=== PATIENT | female | born 1935 | race Caucasian/White ===

== ENCOUNTER 2022-09-08 15:41 | Inpatient (IN) | payer MEDICARE, SELFPAY ==
[2022-09-08] VITALS (8 sets, daily range): BP systolic 108–128; BP diastolic 64–90; PULSE 97–145; RESP 16–28; TEMP 36.9–37.1; O2SAT 94–98; BMI 29.8
--- NOTE | 2022-09-08 15:50 | ECG_ITS ---
[facility] Test Date: 2022-09-08 Pat Name: Avis Villela Department: Room: Gender: Female Crown Presser: : 1935 Requested By: Neri Garcia Order Number: [id number] Sanna MD: Viviana Minor M.D. Measurements Intervals [place] Rate: 146 P: 0 AK: 0 QRS: -7 QRSD: 108 T: 184 QT: 264 QTc: 412 Interpretive Statements ATRIAL FIBRILLATION WITH RAPID VENTRICULAR RESPONSE ST DEVIATION AND MODERATE T-WAVE ABNORMALITY, CONSIDER LATERAL ISCHEMIA [-0.1+ mV T-WAVE IN I/aVL/V5/V6] No previous ECG available for comparison Electronically Signed On 09-08-2022 16:42:26 HOT WOUND SPRING PRODUCTION SUPERVISOR by Viviana Minor M.D. [id number] f
--- NOTE | 2022-09-08 15:50 | XRR_ITS ---
PROCEDURE INFORMATION: Exam: XR Chest Exam date and time: 09/08/2022 3:58 PM Age: 86 years old Clinical indication: Shortness of breath; Additional info: Dyspnea/cough, HX of covid, SOB, 2 months TECHNIQUE: Imaging protocol: Radiologic exam of the chest. Views: 1 view. COMPARISON: No relevant prior studies available. FINDINGS: Lungs: Parenchymal densities seen in the right lower lobe. Possible pneumonia. Right upper lobe and left lung are clear Pleural spaces: Unremarkable. No pleural effusion. No pneumothorax. Heart/Mediastinum: Unremarkable. No cardiomegaly. Bones/joints: Unremarkable. XR/XR chest 1V portable [id number] IMPRESSION: 1. Parenchymal densities right lower lobe consistent with pneumonia 2. Otherwise negative chest examination
[2022-09-08] MEDS: dilTIAZem 5 mg/mL SDV 5 mL 20 MG IVP (16:02)
[2022-09-08] MEDS: dilTIAZem 100 MG in sodium chloride 0.9% (add-van) 100 ML IV (16:03)
--- NOTE | 2022-09-08 16:15 | ED_ITS ---
HPI - SOB/Dyspnea General: Chief Complaint: Shortness of Breath/Dyspnea Stated Complaint: RESPIRATORY DISTRESS Time Seen by Provider: 09/08/22 15:46 Source: patient Mode of arrival: ambulatory History of Present Illness: HPI Narrative: 86-year-old female presents emergency room with complaints of shortness of breath and cough progressive over the last 3 days. Cough has been productive of green sputum but denies any fever. Denies any hemoptysis. Patient does have a history of A-fib with RVR and is currently in a rapid rate around 140s. Patient additionally is noted to be on an anticoagulant. MD elicited complaint: shortness of breath Pertinent past history: other (atrial fibrilation) Onset (ago): day(s) Timing: constant Severity: moderate Exacerbating factors: lying flat and exertion Relieving factors: upright position Associated symptoms: Reports palpitations; Deny abdominal pain, chest congestion, chest pain, cough, diaphoresis, dizziness, extremity pain, fever(s), hemoptysis, lightheadedness, myalgias, nausea, orthopnea, paresthesias, polydipsia, polyuria, rash, sense of impending doom, syncope or vomiting Review of Systems Const: Denies: fever(s), chills, fatigue, malaise or diaphoresis ENMT: Denies: throat pain, ear or mastoid pain, nasal discharge or nasal congestion Card: Reports: palpitations; Denies: chest pain, lightheadedness, syncope or orthopnea Resp: Denies: hemoptysis or chest congestion GI: Denies: abdominal pain, nausea or vomiting : Denies: flank pain, difficulty voiding, dysuria, urinary frequency or urinary urgency Musc: Denies: extremity pain Skin/Breast: Denies: rash or pruritus Neuro: Denies: dizziness Endo: Denies: polyuria or polydipsia PFSH ED PFSH: Medical History (Updated 09/13/22 @ 13:34 by Neri Aponte DO) Asthma Atrial fibrillation Congestive heart failure (CHF) History of aortic stenosis Hyperlipidemia Hypertension Surgical History (Updated 09/08/22 @ 18:09 by Fabricio Swain MD) History of hysterectomy Family History (Updated 09/08/22 @ 18:09 by Fabricio Swain MD) Mother Uterine cancer Father Fall Traumatic fall Social History (Updated 09/08/22 @ 18:09 by Fabricio Swain MD) Smoking and tobacco status: never smoked Alcohol intake: never Substance/Drug Use: never Physical Exam Const: GENERAL APPEARANCE: cooperative and comfortable ORIENTATION/C ONSCIOUSNESS: Yes awake, Yes oriented to person, Yes oriented to place and Yes oriented to time HENMT: COMMON NORMALS: normocephalic, atraumatic and hearing grossly normal bilaterally HEAD & SCALP: normocephalic and atraumatic Resp: COMMON NORMALS: normal respiratory effort, No retractions, No use of accessory muscles and clear to auscultation bilaterally AUSCULTATION: clear to auscultation bilaterally Cardio: COMMON NORMALS: No murmurs present (Cardio) RATE: tachycardic HEART SOUNDS: Murmur heart sound present systolic GI: COMMON NORMALS: Soft to palpation and No hepatosplenomegaly present AUSCULTATION: Yes normoactive bowel sounds PALPATION: Yes Soft to palpation, No Tenderness to palpation present (GI), No Guarding due to palpation present (GI) and Yes No hepatosplenomegaly present Extremity: COMMON NORMALS: normal to inspection, capillary refill normal, no clubbing, cyanosis or edema, no calf tenderness and no pedal edema Neuro: SENSORIUM/ORIENTATION: Yes oriented to person, Yes oriented to place and Yes oriented to time Skin: COMMON NORMALS: no rashes or lesions noted GENERAL SKIN EXAM: no rashes or lesions noted Course Vital Signs: Vital signs: Vital Signs Temperature 97.9 F 09/13/22 12:00 Pulse Rate 82 09/13/22 08:00 Respiratory Rate 18 09/13/22 12:00 Blood Pressure 121/70 09/13/22 12:00 Pulse Oximetry 94 09/13/22 12:00 Oxygen Delivery Me thod 09/13/22 12:00 Oxygen Flow Rate 2 09/13/22 08:00 MDM - SOB/Dyspnea Medical Decision Making Labs imaging and EKGs reviewed. Patient in A-fib with RVR. Patient also has pneumonia complicated by congestive heart failure discussed the hospitalist orders written admit. Medical Records I reviewed the patient's medical records. Lab Data I reviewed the patient's lab results. 09/13/22 03:38 09/13/22 03:38 Labs/Radiology: Radiology Impressions Chest X-Ray 09/08/22 15:50 IMPRESSION: 1. Parenchymal densities right lower lobe consistent with pneumonia 2. Otherwise negative chest examination Venous Duplex 09/09/22 08:08 IMPRESSION: No evidence of deep vein thrombosis. Laboratory Results WBC 7.3 10^3/uL (4.0-10.0) 09/08/22 16:17 RBC 4.76 10^6/uL (4.1-5.3) 09/08/22 16:17 Hgb 12.3 g/dL (11.5-15.3) 09/08/22 16:17 Hct 39.9 % (37.0-47.0) 09/08/22 16:17 MCV 83.8 fl (81-99) 09/08/22 16:17 MCH 25.8 pg (28.0-34.0) L 09/08/22 16:17 MCHC 30.8 g/dL (30.0-36.0) 09/08/22 16:17 RDW 18.6 % (12.1-15.1) H 09/08/22 16:17 Plt Count 234 10^3/cmm (130-400) 09/08/22 16:17 MPV 11.1 fL (7.4-10.4) H 09/08/22 16:17 Neut % (Auto) 69.1 % 09/08/22 16:17 Lymph % (Auto) 13.8 % 09/08/22 16:17 [place] % (Auto) 14.4 % 09/08/22 16:17 Eos % (Auto) 1.8 % 09/08/22 16:17 Baso % (Auto) 0.6 % 09/08/22 16:17 Neut # (Auto) 5.03 10^3/uL (1.8-7.7) 09/08/22 16:17 Lymph # (Auto) 1.0 10^3/uL (0.8-4.8) 09/08/22 16:17 [place] # (Auto) 1.1 10^3/uL (0.2-0.9) H 09/08/22 16:17 Eos # (Auto) 0.1 10^3/uL (0.0-0.8) 09/08/22 16:17 Baso # (Auto) 0.0 10^3/uL (0.0-0.1) 09/08/22 16:17 Nucleated RBC % (auto) 0 % 09/08/22 16:17 Nucleated RBCs # 0.0 /100WBC 09/08/22 16:17 Sodium 137 mmol/L (136-145) 09/08/22 16:17 Potassium 4.4 mmol/L (3.5-5.1) 09/08/22 16:17 Chloride 99 mmol/L (98-107) 09/08/22 16:17 Carbon Dioxide 23 mmol/L (22-29) 09/08/22 16:17 Anion Gap 19.4 (5-19) H 09/08/22 16:17 BUN 8 mg/dL (8-23) 09/08/22 16:17 Creatinine 0.7 mg/dL (0.5-0.9) 09/08/22 16:17 GFR Calculation Not Reportable 09/08/22 16:17 Glucose 112 mg/dL (65-115) 09/08/22 16:17 Calculated Osmolality 283 mOsm/kg (285-295) L 09/08/22 16:17 Lactic Acid 2.1 mmol/L (0.5-2.2) 09/08/22 16:17 Calcium 9.5 mg/dL (8.5-10.5) 09/08/22 16:17 Troponin T Baseline 13 ng/L (0-10) H 09/08/22 16:13 Troponin T 120 Minute 13.70 ng/L (0-10) H 09/08/22 18:32 Delta Troponin T 0.70 ABS# (0-10) 09/08/22 18:32 C-Reactive Protein 52.6 mg/L (0.0-4.9) H 09/08/22 16:17 NT-Pro-B Natriuret Pep 7450 pg/mL (0-450) H 09/08/22 16:17 Triglycerides 52 mg/dL (0-150) 09/08/22 18:32 Cholesterol 132 mg/dL (0-200) 09/08/22 18:32 LDL Cholesterol, Calc 76 mg/dL (50-129) 09/08/22 18:32 HDL Cholesterol 46 mg/dL (60-100) L 09/08/22 18:32 LDL/HDL Ratio 1.65 RATIO (0.00-3.22) 09/08/22 18:32 Cholesterol/HDL Ratio 2.87 mg/dL (0.0-4.40) 09/08/22 18:32 Procalcitonin 0.07 ng/mL (0-0.5) 09/08/22 16:17 TSH 1.99 uIU/mL (0.27-4.20) 09/08/22 18:32 Coronavirus 229E (PCR) Detected (NOT DETECT) A 09/08/22 17:38 SARS-CoV-2 (PCR) Detected (NOT DETECT) A 09/08/22 17:38 Discharge Plan Discharge Patient Disposition: Admitted As Inpatient Admit Provider: Fabricio Swain Clinical Impression: Pneumonia, Atrial fibrillation with RVR, CHF exacerbation, Aortic stenosis, Mitral valve regurgitation Condition: Stable Discharge Diet: Cardiac Discharge Activity: Resume usual activity Coding Level of Care Code ED Curator Herbarium for Rajiv Avila
[2022-09-08] MEDS: FUROsemide 10 mg/mL SDV 4mL 40 MG IVP (16:23)
--- NOTE | 2022-09-08 17:04 | PC.PHAR ---
PT UNABLE TO VERIFY HER MEDS - PT STS HER DAUGHTER RAINER TAKES CARE OF THEM - NO PHONE NUMBER AVAILABLE TO CALL DAUGHTER- VERIFIED USING EXTERNAL MED LIST LAST FILLED AND DAYS SUPPLY
--- NOTE | 2022-09-08 17:15 | ECG_ITS ---
[facility] Test Date: 2022-09-08 Pat Name: Avis Villela Department: Room: Gender: Female Regulatory Compliance Manager: : 1935 Requested By: Fabricio Swain Order Number: [id number] Sanna MD: Viviana Minor M.D. Measurements Intervals [place] Rate: 146 P: 0 CO: 0 QRS: -7 QRSD: 108 T: 184 QT: 264 QTc: 412 Interpretive Statements ATRIAL FIBRILLATION WITH RAPID VENTRICULAR RESPONSE ST DEVIATION AND MODERATE T-WAVE ABNORMALITY, CONSIDER LATERAL ISCHEMIA [-0.1+ mV T-WAVE IN I/aVL/V5/V6] No previous ECG available for comparison Electronically Signed On 09-08-2022 23:15:17 SCIENTIFIC WRITER by Viviana Minor M.D. [email or web address]/[id number] f
[2022-09-08 17:23] LABS: Basophils % 0.6 %; Eosinophils # 0.1 10^3/uL (0.0-0.8); Eosinophils % 1.8 %; Hematocrit 39.9 % (37.0-47.0); Hemoglobin 12.3 g/dL (11.5-15.3); Lymphocytes % 13.8 %; Mean Corpuscular HGB Conc 30.8 g/dL (30.0-36.0); Mean Corpuscular Hemoglobin 25.8 pg (28.0-34.0); Mean Corpuscular Volume 83.8 fl (81-99); Mean Platelet Volume 11.1 fL (7.4-10.4); Monocytes # 1.1 10^3/uL (0.2-0.9); Monocytes % 14.4 %; Neutrophils # 5.03 10^3/uL (1.8-7.7); Neutrophils % 69.1 %; Nucleated Red Blood Cells % 0 %; Platelet Count 234 10^3/cmm (130-400); Red Blood Count 4.76 10^6/uL (4.1-5.3); Red Cell Distribution Width 18.6 % (12.1-15.1); White Blood Count 7.3 10^3/uL (4.0-10.0)
[2022-09-08 17:32] LABS: Lactic Sepsis W/Reflex 2.1 mmol/L (0.5-2.2)
[2022-09-08] MEDS: levofloxacin-dextrose 5 % 750 MG/150 ML PREMIX 100 MG IV (17:36)
[2022-09-08 17:42] LABS: NT Pro B Type Natriuretic Pept 7450 pg/mL (0-450); Procalcitonin 0.07 ng/mL (0-0.5)
[2022-09-08 17:53] LABS: Anion Gap 19.4 (5-19); Blood Urea Nitrogen 8 mg/dL (8-23); C Reactive Protein 52.6 mg/L (0.0-4.9); Calcium 9.5 mg/dL (8.5-10.5); Carbon Dioxide 23 mmol/L (22-29); Chloride 99 mmol/L (98-107); Glucose 112 mg/dL (65-115); Osmolality Calculated 283 mOsm/kg (285-295); Potassium 4.4 mmol/L (3.5-5.1); Sodium 137 mmol/L (136-145)
--- NOTE | 2022-09-08 18:04 | PM.HP ---
Providers/Chief Complaint Primary Care Provider: Josh Metz Chief Complaint: RESPIRATORY DISTRESS History of Present Illness Avis Villela is a 86 year old female with a past medical history of aortic valve stenosis, mitral valve regurg, atrial fibrillation on Eliquis, hypertension, hyperlipidemia, history of asthma, sees a associate [employer] since [place], this is her third hospitalization in the last 2 months, she was at [facility] the last 2 tabs most recent was August 16, currently lives at home, with her daughter, ambulates with a walker, requires assistance with activities of daily living, who presents to [facility] due to increased shortness of breath with exertion progressing to rest, with developing bilateral lower extremity edema, productive cough. Patient is alert to person, to place, not to time, she knows who the president is, she frequently looks to her daughter for answers but daughter denies a history of dementia. She denies any falls, no fevers, chills, no chest pain, no history of CAD no history of stenting, no history of angiogram, she recently just saw her associate [employer] and he told her that she had what sounds like severe aortic stenosis but not severe enough to do surgery Review of Systems Const: Denies: fever(s) or chills Eyes: Denies: change in vision ENMT: Denies: throat pain or nasal discharge Card: Reports: palpitations and edema; Denies: chest pain Resp: Reports: dyspnea and productive cough GI: Denies: abdominal pain, nausea or vomiting : Denies: flank pain, difficulty voiding, dysuria or urinary frequency Musc: Denies: back pain Skin/Breast: Denies: rash Neuro: Denies: headache(s), numbness in extremities or weakness in extremities Psych: Denies: anxiety Endo: Reports: polyuria Medications/Allergies Home Medications Medication Instructions Recorded Confirmed Last Taken Type albuterol sulfate 2.5 mg/3 mL 2.5 mg inhalation Q4H PRN 09/08/22 09/08/22 Unknown History (0.083 %) solution for nebulization Shortness Of Breath albuterol sulfate 90 mcg/actuation 2 puff inhalation Q4H PRN 09/08/22 09/08/22 Unknown History aerosol inhaler Shortness Of Breath apixaban 5 mg tablet (Eliquis) 5 mg PO BID 09/08/22 09/08/22 Unknown History bumetanide 0.5 mg tablet 0.5 mg PO DAILY 09/08/22 09/08/22 Unknown History diltiazem HCl 120 mg 120 mg PO DAILY 09/08/22 09/08/22 Unknown History capsule,extended release 24 hr fluticasone 250 mcg-salmeterol 50 1 inh inhalation BID 09/08/22 09/08/22 Unknown History mcg/dose blistr powdr for inhalation (Advair Diskus) fluticasone propionate 50 2 spray intranasal DAILY 09/08/22 09/08/22 Unknown History mcg/actuation nasal spray,suspension furosemide 40 mg tablet 40 mg PO DAILY 09/08/22 09/08/22 Unknown History hydrochlorothiazide 12.5 mg tablet 6.25 mg PO DAILY 09/08/22 09/08/22 Unknown History metoprolol tartrate 50 mg tablet 50 mg PO BID 09/08/22 09/08/22 Unknown History pantoprazole 40 mg tablet,delayed 40 mg PO DAILY 09/08/22 09/08/22 Unknown History release potassium chloride 20 mEq 20 meq PO BID 09/08/22 09/08/22 Unknown History tablet,extended release(part/cryst) PFSH Acute PFSH: Medical History (Updated 09/08/22 @ 18:12 by Fabricio Swain MD) Asthma Atrial fibrillation Congestive heart failure (CHF) History of aortic stenosis Hyperlipidemia Hypertension Surgical History (Updated 09/08/22 @ 18:09 by Fabricio Swain MD) History of hysterectomy Family History (Updated 09/08/22 @ 18:09 by Fabricio Swain MD) Mother Uterine cancer Father Fall Traumatic fall Social History (Updated 09/08/22 @ 18:09 by Fabricio Swain MD) Smoking and tobacco status: never smoked Alcohol intake: never Substance/Drug Use: never Vitals/I&O/Wt Last Vital Signs Temp 98.8 F 09/08/22 15:45 Pulse 109 H 09/08/22 17:43 Resp 16 09/08/22 17:43 BP 108/70 09/08/22 17:43 Pulse Ox 96 09/08/22 17:43 O2 Del Method 09/08/22 17:43 O2 Flow Rate 2 09/08/22 17:43 Weight last 48 hrs Weight 83.915 kg Physical Exam Const: COMMON NORMALS: no acute distress and patient oriented x3 HENMT: COMMON NORMALS: normocephalic HEAD & SCALP: normocephalic Eye: COMMON NORMALS: Equal, round and reactive pupils present and EOMs intact bilaterally Neck/C-Spine: COMMON NORMALS: no JVD Lymph: LYMPHATIC: no lymphadenopathy noted Chest: COMMONS NORMALS: normal inspection of the chest Resp: COMMON NORMALS: normal respiratory effort, No retractions and No use of accessory muscles AUSCULTATION: crackles and wheezes Cardio: COMMON NORMALS: S1 normal heart sound present and S2 normal heart sound present RATE: tachycardic RHYTHM: abnormal rhythm irregularly irregular HEART SOUNDS: S1 normal heart sound present and S2 normal heart sound present GI: COMMON NORMALS: Normal to inspection, nondistended, normoactive bowel sounds present and Soft to palpation PALPATION: Yes Soft to palpation and Yes No hepatosplenomegaly present : COMMON NORMALS: Yes no CVA tenderness Extremity: COMMON NORMALS: no clubbing, cyanosis or edema and no calf tenderness NARRATIVE EXTREMITY EXAM: 2+ pitting edema bilateral extremity Neuro: COMMON NORMALS: patient oriented x3, CN's II-XII intact bilaterally, moves all extremities and no focal motor deficits Psych: COMMON NORMALS: mental status grossly normal Data 09/08/22 16:17 09/08/22 16:17 Micro: Microbiology 09/08/22 17:07 Blood Culture - Preliminary Blood SPECIMEN COLLECTED 09/08/22 17:13 Blood Culture - Preliminary Blood SPECIMEN COLLECTED A&P Assessment and plan (1) CHF exacerbation: (2) Atrial fibrillation with RVR: (3) Pneumonia: (4) Physical deconditioning: (5) Protein calorie malnutrition: (6) Goals of care, counseling/discussion: (7) Chronic anticoagulation: (8) Congestive heart failure (CHF): (9) Hypertension: (10) Hyperlipidemia: (11) Asthma: (12) Aortic stenosis: (13) Mitral valve regurgitation: (14) Atrial fibrillation: (15) Acute respiratory failure with hypoxia: (16) Acute encephalopathy: Plan Acute encephalopathy -Likely secondary to underlying dementia -However pneumonia could be playing a role -Neurochecks, aspiration precautions Acute hypoxic respiratory failure -Secondary to pneumonia, A-fib with RVR, fluid overload from acute CHF exacerbation A-fib with RVR -Continue Cardizem drip -Continue Metroprolol 50 twice daily -Continue home Cardizem -Eliquis 5 mg twice daily -Based upon what patient is telling, likely her severe aortic stenosis and her mitral regurg is playing a role due to her recurrent hospitalizations for A-fib, likely her valve will need to be intervened on at some point Acute systolic and diastolic CHF exacerbation -Fluid restrictions 1500 cc -Bumex 1 mg every 12 hours -Place Sanchez catheter -Monitor potassium, magnesium, creatinine Pneumonia -Received Levaquin in the emergency room -COVID pending -Continue Rocephin and azithromycin -Blood cultures -Sputum cultures -Pro-Steve, CRP Asthma, -Continue albuterol, budesonide Hypertension, continue metoprolol Hyperlipidemia, will consider statin based on lipid, Physical deconditioning, PT OT Protein calorie malnutrition, with muscle wasting, has temporal muscle wasting, peripheral muscle wasting Full code Eliquis for DVT prophylaxis Attestations Medical Necessity Statement*: Patient requires hospitalization, inpatient, greater than 2 midnights, for pneumonia, acute hypoxic respiratory failure, CHF exacerbation, systolic diastolic, A-fib with RVR, encephalopathy Coding Level of Care Code Acute Code for Chg Fwd Diagnoses CHF exacerbation I50.9 Atrial fibrillation with RVR I48.91 Pneumonia J18.9 Physical deconditioning R53.81 Protein calorie malnutrition E46 Goals of care, counseling/discussion Z71.89 Chronic anticoagulation Z79.01 Congestive heart failure (CHF) I50.9 Hypertension I10 Hyperlipidemia E78.5 Asthma J45.909 Aortic stenosis I35.0 Mitral valve regurgitation I34.0 Atrial fibrillation I48.91 Acute respiratory failure with hypoxia J96.01 Acute encephalopathy G93.40
[2022-09-08 18:18] LABS: Troponin(5th) Baseline 13 ng/L (0-10)
[2022-09-08 18:44] LABS: Reflex Lactate Order REFLEX LACTIC ORDERD
--- NOTE | 2022-09-08 19:15 | ECG_ITS ---
[facility] Test Date: 2022-09-08 Pat Name: Avis Villeal Department: Room: Gender: Female Ground Defence Officer: : 1935 Requested By: Fabricio Swain Order Number: [id number] Sanna MD: Viviana Minor M.D. Measurements Intervals [place] Rate: 101 P: 0 AK: 0 QRS: 26 QRSD: 102 T: 135 QT: 332 QTc: 431 Interpretive Statements ATRIAL FIBRILLATION WITH RAPID VENTRICULAR RESPONSE ST DEVIATION AND MODERATE T-WAVE ABNORMALITY, CONSIDER LATERAL ISCHEMIA [-0.1+ mV T-WAVE IN I/aVL/V5/V6] Compared to ECG 09/08/2022 15:54:15 No significant changes Electronically Signed On 09-08-2022 23:21:03 DENTAL PATIENT COORDINATOR by Viviana Minor M.D. [id number]
[2022-09-08 19:54] LABS: Adenovirus Not Detected (NOT DETECT); Chlamydia Pneumoniae Not Detected (NOT DETECT); Coronavirus 229E,HKU1,NL63,OC4 Detected (NOT DETECT); Human Metapneumovirus Not Detected (NOT DETECT); Human Rhinovirus/Enterovirus Not Detected (NOT DETECT); Influenza A Not Detected (NOT DETECT); Influenza A H1 Not Detected (NOT DETECT); Influenza A H1-2009 Not Detected (NOT DETECT); Influenza A H3 Not Detected (NOT DETECT); Influenza B Not Detected (NOT DETECT); Mycoplasma Pneumoniae Not Detected (NOT DETECT); Parainfluenza Virus Type 1 Not Detected (NOT DETECT); Parainfluenza Virus Type 2 Not Detected (NOT DETECT); Parainfluenza Virus Type 3 Not Detected (NOT DETECT); Parainfluenza Virus Type 4 Not Detected (NOT DETECT); Respiratory Syncytial Virus A Not Detected (NOT DETECT); Respiratory Syncytial Virus B Not Detected (NOT DETECT); SARS-COV-2 Detected (NOT DETECT)
[2022-09-08] MEDS: metoprolol tartrate 50 mg Tablet PO (19:54)
[2022-09-08] MEDS: apixaban 5 mg Tablet PO (19:54)
[2022-09-08 19:55] LABS: Lactic Acid level (Lactate) 2.8 mmol/L (0.5-2.2)
[2022-09-08] MEDS: bumetanide 0.25 mg/mL SDV 4 mL 1 MG IVP (19:55)
[2022-09-08] MEDS: potassium chloride ER 20 mEq Tablet PO (19:55)
--- NOTE | 2022-09-08 19:58 | PC.NURSE ---
received pt from ER with cardizem gtt infusing at 15 mg/hr, titrated in MAR to reflect current rate
[2022-09-08 21:00] LABS: Chol HDL Ratio 2.87 mg/dL (0.0-4.40); Cholesterol 132 mg/dL (0-200); HDL Cholesterol 46 mg/dL (60-100); LDL Cholesterol Calculated 76 mg/dL (50-129); LDL HDL Ratio 1.65 RATIO (0.00-3.22); Thyroid Stimulating Hormone 1.99 uIU/mL (0.27-4.20); Triglycerides 52 mg/dL (0-150)
[2022-09-08] MEDS: budesonide 0.5 mg/2 mL Neb INHALATION (22:07)
[2022-09-08 22:20] LABS: Add Urine Microscopic? NO; Charge for UA Resulting for Rev
[2022-09-08 22:40] LABS: Bilirubin Urine Neg (Negative); Blood Urine Neg (Negative); Glucose Urine UA Norm (Normal); Ketones Urine Negative (Negative); Leukocyte Esterase Urine Negative (Negative); Nitrate Urine Negative (Negative); Protein Urine Neg (Negative); Specific Gravity, Urine 1.005 (1.005-1.030); Urine Appearance Clear (CLEAR); Urine Color Yellow (Yellow); Urobilinogen Urine Neg (Negative); pH Urine 5 (5-7)
--- NOTE | 2022-09-08 23:51 | ECG_ITS ---
[facility] Test Date: 2022-09-08 Pat Name: Avis Villela Department: Room: 107 Gender: Female Pantomimist: : 1935 Requested By: Fabricio Swain Order Number: [id number] Sanna MD: Reinier Grier M.D. Measurements Intervals [place] Rate: 91 P: 0 WI: 0 QRS: -14 QRSD: 106 T: 187 QT: 407 QTc: 503 Interpretive Statements ATRIAL FIBRILLATION ST DEVIATION AND MODERATE T-WAVE ABNORMALITY, CONSIDER ANTEROLATERAL ISCHEMIA [-0.1+ mV T-WAVE IN V3-V6] Compared to ECG 09/08/2022 18:25:21 No significant changes Electronically Signed On 09-09-2022 19:35:32 MANAGER SALES by Reinier Grier M.D. [email or web address]/[id number]
[2022-09-09] VITALS (60 sets, daily range): BP systolic 101–109; BP diastolic 57–75; PULSE 96–133; RESP 17–36; TEMP 36.3–37.8; O2SAT 86–99
[2022-09-09] MEDS: dilTIAZem 100 MG in sodium chloride 0.9% (add-van) 100 ML IV (01:35)
[2022-09-09] MEDS: benzonatate 100 mg Capsule 200 MG PO ×3 (02:55→20:13)
[2022-09-09 03:27] LABS: Basophils % 0.4 %; Eosinophils # 0.1 10^3/uL (0.0-0.8); Hematocrit 37.9 % (37.0-47.0); Hemoglobin 11.5 g/dL (11.5-15.3); Lymphocytes # 0.9 10^3/uL (0.8-4.8); Lymphocytes % 11.8 %; Mean Corpuscular HGB Conc 30.3 g/dL (30.0-36.0); Mean Corpuscular Volume 82.4 fl (81-99); Mean Platelet Volume 10.2 fL (7.4-10.4); Monocytes # 1.1 10^3/uL (0.2-0.9); Neutrophils # 5.68 10^3/uL (1.8-7.7); Neutrophils % 72.4 %; Nucleated Red Blood Cells % 0 %; Platelet Count 215 10^3/cmm (130-400); Red Cell Distribution Width 18.3 % (12.1-15.1); White Blood Count 7.9 10^3/uL (4.0-10.0)
[2022-09-09 04:00] LABS: Anion Gap 13.7 (5-19); Blood Urea Nitrogen 7 mg/dL (8-23); Calcium 9.3 mg/dL (8.5-10.5); Carbon Dioxide 26 mmol/L (22-29); Chloride 95 mmol/L (98-107); Glucose 122 mg/dL (65-115); Magnesium 1.8 mg/dL (1.7-2.3); NT Pro B Type Natriuretic Pept 6044 pg/mL (0-450); Osmolality Calculated 271 mOsm/kg (285-295); Potassium 3.7 mmol/L (3.5-5.1); Sodium 131 mmol/L (136-145)
[2022-09-09] MEDS: acetaminophen 325 mg Tablet 650 MG PO (04:36)
--- NOTE | 2022-09-09 06:00 | USCV_ITS ---
Avis Villela Age: 86 Gender: F : 1935 Exam Date: 09/09/2022 13:08 Ordering Phys: Fabricio Swain MD Technologist: MITRA [place] [facility] [place] BP: / HR: 103 Rhythm: Sinus Technical Quality: MEASUREMENTS (Male / Female) Normal Values 2D ECHO LVOT Diameter 1.8 cm LV Ejection Fraction MOD 2C 79.3 % LV Ejection Fraction 2C AL 78.8 % LA Diameter 4.7 cm IVC Diameter 2.9 cm M-MODE Aortic Annulus Diameter 2.2 cm LA Ao Ratio MM 2.2 MV E Point Septal Separation 1.2 cm DOPPLER AV Peak Velocity 360.0 cm/s LVOT Peak Velocity 69.0 cm/s AV Area Cont Eq vti 0.6 cm squared AV Area Cont Eq pk 0.5 cm squared MV Area PHT 5.1 cm squared MV E' Velocity 132.0 cm/s TR Peak Velocity 324.3 cm/s TR Peak Gradient 42.1 mmHg Right Atrial Pressure 15.0 mmHg Pulmonary Artery Systolic Pressu 57.1 mmHg PV Peak Velocity 79.0 cm/s FINDINGS Left Ventricle Normal left ventricular size and systolic function, EF 74 %. No regional wall motion abnormalities. Right Ventricle Normal right ventricular size and systolic function. Right Atrium Mildly increased right atrial size. Left Atrium Moderately increased left atrial size. Mitral Valve Thickened mitral valve. Moderate mitral annular calcification. Moderate mitral valve regurgitation. Aortic Valve Severe low gradient aortic valve stenosis, mean gradient 28.7 mmHg, NANO 0.56 cm squared. Peak velocity of 3.6 m/s with a peak gradient of 52 and a mean gradient of 29 mm of Hg Tricuspid Valve Mdqpeurj-bg-vexzvu tricuspid valve regurgitation. Estimated pulmonary artery peak systolic pressure of 57 mmHg-moderate pulmonary hypertension Pulmonic Valve No gross abnormalities noted Pericardium No pericardial effusion. Aorta Normal ascending aorta dimension. IVC Dilated inferior vena cava measuring 2.9 cm CONCLUSIONS Normal left ventricular size and systolic function, EF 74 %. No regional wall motion abnormalities. Severe low gradient aortic valve stenosis, mean gradient 28.7 mmHg, NANO 0.56 cm squared. Peak velocity of 3.6 m/s with a peak gradient of 52 and a mean gradient of 29 mm of Hg. Moderate biatrial enlargement Thickened mitral valve. Moderate mitral annular calcification. Moderate mitral valve regurgitation. Bdphnxna-py-tlddji tricuspid valve regurgitation. Estimated pulmonary artery peak systolic pressure of 57 mmHg-moderate pulmonary hypertension. There is no pericardial effusion. There are no intracardiac masses. No similar previous studies are available for comparison Dr Reinier Grier MD [facility] (Electronically Signed) Final Date: 09 September 2022 14:55 S
[2022-09-09] MEDS: bumetanide 0.25 mg/mL SDV 4 mL 1 MG IVP ×2 (06:13→17:33)
--- NOTE | 2022-09-09 08:08 | USR_ITS ---
PROCEDURE INFORMATION: Exam: US Duplex Lower Extremity Veins, Bilateral Exam date and time: 09/09/2022 1:40 PM Age: 86 years old Clinical indication: Edema, localized; Lower extremity, bilateral; Additional info: Dvt TECHNIQUE: Imaging protocol: Real-time duplex ultrasound of the bilateral extremities with 2-D linton scale, color Doppler flow and spectral waveform analysis including responses to compression and other maneuvers (when performed) with image documentation. Complete exam focused on the lower extremity veins. COMPARISON: No relevant prior studies available. FINDINGS: Right deep veins: Unremarkable. The common femoral, femoral, proximal profunda femoral and popliteal veins are patent without thrombus. Normal Doppler waveforms. Normal compressibility and/or augmentation response. Right superficial veins: Saphenofemoral junction is patent without thrombus. Left deep veins: Unremarkable. The common femoral, femoral, proximal profunda femoral and popliteal veins are patent without thrombus. Normal Doppler waveforms. Normal compressibility and/or augmentation response. Left superficial veins: Saphenofemoral junction is patent without thrombus. Soft tissues: Unremarkable. US/CV venous duplex [facility] [id number] IMPRESSION: No evidence of deep vein thrombosis.
[2022-09-09] MEDS: azithromycin 500 MG in sodium chloride 0.9% 250 ML 250 MG IV (09:19)
[2022-09-09] MEDS: dexamethasone 10 mg/mL INJ 6 MG IVP (09:20)
[2022-09-09] MEDS: potassium chloride ER 20 mEq Tablet PO ×2 (09:21→17:36)
[2022-09-09] MEDS: pantoprazole DR 40 mg Tablet PO (09:21)
[2022-09-09] MEDS: dilTIAZem ER (24HR) 120 mg Capsule PO (09:21)
[2022-09-09] MEDS: metOLazone 5 MG Tablet PO (09:21)
[2022-09-09] MEDS: apixaban 5 mg Tablet PO ×2 (09:21→17:36)
[2022-09-09] MEDS: metoprolol tartrate 50 mg Tablet PO ×2 (09:21→17:36)
[2022-09-09] MEDS: cefTRIAXone 1,000 MG in sodium chloride 0.9% (plus) 50 ML 100 MG IV (09:22)
[2022-09-09] MEDS: albuterol 2.5 mg/3 mL Neb INHALATION (09:30)
[2022-09-09] MEDS: budesonide 0.5 mg/2 mL Neb INHALATION ×2 (09:30→21:17)
[2022-09-09] MEDS: remdesivir 200 MG in sodium chloride 0.9% (100 ml) 60 ML 100 MG IV (10:04)
--- NOTE | 2022-09-09 14:34 | P.PN_ITS ---
Subjective Subjective: Patient was seen this morning, she continues to complain of weakness, fatigue, her COVID-19 was positive overnight, she had a low-grade fever overnight, having wheezing Vitals/I&O/Wt Last Vital Signs Temp 98.0 F 09/09/22 11:32 Pulse 106 H 09/09/22 14:05 Resp 19 H 09/09/22 14:05 BP 103/69 09/09/22 14:05 Pulse Ox 86 L 09/09/22 14:05 O2 Del Method 09/09/22 11:32 O2 Flow Rate 1 09/09/22 11:32 09/08/22 09/09/22 09/09/22 22:59 06:59 14:59 Intake Total 207.208 / 207.208 517.667 / 724.875 520 / 520 Output Total 1000 / 1000 1000 / 2000 Balance -792.792 / -792.792 -482.333 / -1275.125 520 / 520 Weight last 48 hrs Weight 83.915 kg Physical Exam Const: COMMON NORMALS: no acute distress and patient oriented x3 Resp: COMMON NORMALS: normal respiratory effort, No retractions and No use of accessory muscles Cardio: COMMON NORMALS: regular rate, regular rhythm, S1 normal heart sound present and S2 normal heart sound present RATE: regular rate RHYTHM: regular rhythm HEART SOUNDS: S1 normal heart sound present and S2 normal heart sound present GI: COMMON NORMALS: Normal to inspection, nondistended, normoactive bowel sounds present and non-tender Extremity: NARRATIVE EXTREMITY EXAM: Has 1+ edema Neuro: COMMON NORMALS: patient oriented x3 Psych: COMMON NORMALS: mental status grossly normal Urinary Catheter Management: Sanchez: Cath Placed During This Visit: yes Reason for Continuing Indwelling Catheter: Accurate Measurement of Urinary Output in Critically Ill Patients Urinary Catheter Date of Insertion: 09/08/22 Urinary Catheter Time of Insertion: 19:30 Data 09/09/22 03:11 09/09/22 03:11 Micro: Microbiology 09/08/22 17:07 Blood Culture - Preliminary Blood SPECIMEN COLLECTED 09/08/22 17:13 Blood Culture - Preliminary Blood SPECIMEN COLLECTED A&P Assessment and plan (1) CHF exacerbation: (2) Atrial fibrillation with RVR: (3) Pneumonia: (4) Physical deconditioning: (5) Protein calorie malnutrition: (6) Goals of care, counseling/discussion: (7) Chronic anticoagulation: (8) Congestive heart failure (CHF): (9) Hypertension: (10) Hyperlipidemia: (11) Asthma: (12) Aortic stenosis: (13) Mitral valve regurgitation: (14) Atrial fibrillation: (15) Acute respiratory failure with hypoxia: (16) Acute encephalopathy: (17) Pneumonia due to COVID-19 virus: Plan Acute encephalopathy -Resolved -Likely secondary to underlying dementia -However pneumonia could be playing a role -Neurochecks, aspiration precautions Acute hypoxic respiratory failure -Secondary to pneumonia, A-fib with RVR, fluid overload from acute CHF exac erbation A-fib with RVR -Wean off Cardizem drip -Continue Metroprolol 50 twice daily -Continue home Cardizem -Eliquis 5 mg twice daily -Based upon what patient is telling, likely her severe aortic stenosis and her mitral regurg is playing a role due to her recurrent hospitalizations for A-fib, likely her valve will need to be intervened on at some point Acute systolic and diastolic CHF exacerbation -Fluid restrictions 1500 cc -Bumex 1 mg every 12 hours -Place Sanchez catheter -Monitor potassium, magnesium, creatinine Pneumonia -Received Levaquin in the emergency room -Continue Rocephin and azithromycin -Blood cultures -Sputum cultures COVID-19 pneumonia, switch to Decadron, and add remdesivir Asthma, -Continue albuterol, budesonide Hypertension, continue metoprolol Hyperlipidemia, will consider statin based on lipid, Physical deconditioning, PT OT Protein calorie malnutrition, with muscle wasting, has temporal muscle wasting, peripheral muscle wasting Full code Eliquis for DVT prophylaxis Attestations Medical Necessity Statement*: Patient requires position due to COVID-19 pneumonia, requiring Decadron remdesivir A-fib, requiring rate control, CHF exacerbation requiring diuresis, pneumonia requiring broad-spectrum empiric therapy Diagnoses CHF exacerbation I50.9 Atrial fibrillation with RVR I48.91 Pneumonia J18.9 Physical deconditioning R53.81 Protein calorie malnutrition E46 Goals of care, counseling/discussion Z71.89 Chronic anticoagulation Z79.01 Congestive heart failure (CHF) I50.9 Hypertension I10 Hyperlipidemia E78.5 Asthma J45.909 Aortic stenosis I35.0 Mitral valve regurgitation I34.0 Atrial fibrillation I48.91 Acute respiratory failure with hypoxia J96.01 Acute encephalopathy G93.40 Pneumonia due to COVID-19 virus U07.1; J12.82
[2022-09-09] MEDS: metoprolol tartrate 1 mg/1 mL SDV 5 mL 5 MG IVP (20:14)
[2022-09-10] VITALS (13 sets, daily range): BP systolic 101–132; BP diastolic 55–100; PULSE 96–113; RESP 15–106; TEMP 36.3–37.2; O2SAT 91–95
[2022-09-10 02:56] LABS: Basophils % 0.1 %; Hematocrit 38.1 % (37.0-47.0); Hemoglobin 11.9 g/dL (11.5-15.3); Lymphocytes # 0.8 10^3/uL (0.8-4.8); Lymphocytes % 11.5 %; Mean Corpuscular HGB Conc 31.2 g/dL (30.0-36.0); Mean Corpuscular Hemoglobin 25.6 pg (28.0-34.0); Mean Corpuscular Volume 82.1 fl (81-99); Mean Platelet Volume 10.8 fL (7.4-10.4); Monocytes # 0.6 10^3/uL (0.2-0.9); Monocytes % 8.7 %; Neutrophils # 5.59 10^3/uL (1.8-7.7); Neutrophils % 79.3 %; Nucleated Red Blood Cells % 0 %; Platelet Count 225 10^3/cmm (130-400); Red Blood Count 4.64 10^6/uL (4.1-5.3); Red Cell Distribution Width 18.1 % (12.1-15.1); White Blood Count 7.1 10^3/uL (4.0-10.0)
[2022-09-10 03:31] LABS: Alanine Aminotransferase 10 U/L (0-33); Albumin Level 3.2 g/dL (3.5-5.2); Alkaline Phosphatase 112 U/L (35-105); Anion Gap 14.4 (5-19); Aspartate Amino Transferase 14 U/L (0-32); Blood Urea Nitrogen 13 mg/dL (8-23); C Reactive Protein 73.4 mg/L (0.0-4.9); Calcium 9.4 mg/dL (8.5-10.5); Carbon Dioxide 27 mmol/L (22-29); Chloride 95 mmol/L (98-107); Globulin 2.9 g/dL (1.3-4.6); Glucose 174 mg/dL (65-115); NT Pro B Type Natriuretic Pept 7979 pg/mL (0-450); Osmolality Calculated 280 mOsm/kg (285-295); Phosphorus 3.6 mg/dL (2.5-4.5); Potassium 3.4 mmol/L (3.5-5.1); Sodium 133 mmol/L (136-145); Total Bilirubin 0.5 mg/dL (0.15-1.2); Total Protein 6.1 g/dL (6.6-8.7)
[2022-09-10] MEDS: guaiFENesin-dextromethorphan UDC 10 mL 5 ML PO (04:36)
[2022-09-10] MEDS: albuterol 2.5 mg/3 mL Neb INHALATION ×3 (04:49→19:27)
[2022-09-10] MEDS: bumetanide 0.25 mg/mL SDV 4 mL 1 MG IVP ×2 (06:14→18:15)
[2022-09-10] MEDS: remdesivir 100 MG in sodium chloride 0.9% (100 ml) 80 ML IV (06:16)
[2022-09-10] MEDS: azithromycin 500 MG in sodium chloride 0.9% 250 ML 250 MG IV (08:55)
[2022-09-10] MEDS: cefTRIAXone 1,000 MG in sodium chloride 0.9% (plus) 50 ML 100 MG IV (08:56)
[2022-09-10] MEDS: fluticasone nasal spray 16gm Btl 2 SPRAY INTRANASAL (08:56)
[2022-09-10] MEDS: pantoprazole DR 40 mg Tablet PO (08:57)
[2022-09-10] MEDS: potassium chloride ER 20 mEq Tablet PO ×2 (08:57→18:15)
[2022-09-10] MEDS: benzonatate 100 mg Capsule 200 MG PO (08:57)
[2022-09-10] MEDS: apixaban 5 mg Tablet PO ×2 (08:57→18:15)
[2022-09-10] MEDS: dexamethasone 10 mg/mL INJ 6 MG IVP (08:58)
[2022-09-10] MEDS: dilTIAZem ER (24HR) 120 mg Capsule PO (09:03)
[2022-09-10] MEDS: metoprolol tartrate 50 mg Tablet 75 MG PO ×2 (09:03→18:14)
[2022-09-10] MEDS: budesonide 0.5 mg/2 mL Neb INHALATION ×2 (09:55→19:27)
[2022-09-10] MEDS: ondansetron 2 mg/ML SDV 2 mL 4 MG IVP (10:29)
--- NOTE | 2022-09-10 14:16 | PM.PN ---
Subjective Subjective: Patient was seen this morning, she feels a bit better, I went over her echocardiogram results which show severe aortic stenosis, she tells me that her pharmacy services representative told her that she has severe external cyst that she will eventually need surgery, she is not sure about the timeframe, but her heart rates are better controlled, Vitals/I&O/Wt Last Vital Signs Temp 98.0 F 09/10/22 12:00 Pulse 108 H 09/10/22 12:00 Resp 15 09/10/22 12:00 BP 125/55 09/10/22 12:00 Pulse Ox 92 09/10/22 12:00 O2 Del Method 09/10/22 12:00 O2 Flow Rate 1 09/10/22 09:42 09/09/22 09/10/22 09/10/22 22:59 06:59 14:59 Intake Total 320 / 960 700 / 1660 236 / 236 Output Total 1600 / 1600 850 / 2450 Balance -1280 / -640 -150 / -790 236 / 236 Weight last 48 hrs Weight 83.915 kg Physical Exam Const: COMMON NORMALS: no acute distress and patient oriented x3 Resp: COMMON NORMALS: normal respiratory effort, No retractions, No use of accessory muscles and clear to auscultation bilaterally AUSCULTATION: clear to auscultation bilaterally Cardio: COMMON NORMALS: regular rate, regular rhythm, S1 normal heart sound present and S2 normal heart sound present RATE: regular rate RHYTHM: regular rhythm HEART SOUNDS: S1 normal heart sound present and S2 normal heart sound present GI: COMMON NORMALS: Normal to inspection, nondistended, normoactive bowel sounds present and non-tender Extremity: COMMON NORMALS: no pedal edema Neuro: COMMON NORMALS: patient oriented x3 Psych: COMMON NORMALS: mental status grossly normal Urinary Catheter Management: Sanchez: Cath Placed During This Visit: yes Reason for Continuing Indwelling Catheter: Accurate Measurement of Urinary Output in Critically Ill Patients Urinary Catheter Date of Insertion: 09/08/22 Urinary Catheter Time of Insertion: 19:30 Data 09/10/22 02:28 09/10/22 02:28 Micro: Microbiology 09/08/22 21:45 Gram Stain - Final Sputum - Expectorated Sputum Sputum Culture - Preliminary 09/08/22 17:07 Blood Culture - Preliminary Blood NEGATIVE TO DATE 09/08/22 17:13 Blood Culture - Preliminary Blood NEGATIVE TO DATE A&P Assessment and plan (1) CHF exacerbation: (2) Atrial fibrillation with RVR: (3) Pneumonia: (4) Physical deconditioning: (5) Protein calorie malnutrition: (6) Goals of care, counseling/discussion: (7) Chronic anticoagulation: (8) Congestive heart failure (CHF): (9) Hypertension: (10) Hyperlipidemia: (11) Asthma: (12) Aortic stenosis: (13) Mitral valve regurgitation: (14) Atrial fibrillation: (15) Acute respiratory failure with hypoxia: (16) Acute encephalopathy: (17) Pneumonia due to COVID-19 virus: Plan Acute encephalopathy -Resolved -Likely secondary to underlying dementia -However pneumonia could be playing a role -Neurochecks, aspiration precautions Acute hypoxic respiratory failure -Secondary to pneumonia, A-fib with RVR, fluid overload from acute CHF exacerbation A-fib with RVR -Continue increase metoprolol to 75 twice daily -Continue home Cardizem -Eliquis 5 mg twice daily -Based upon what patient is telling, likely her severe aortic stenosis and her mitral regurg is playing a role due to her recurrent hospitalizations for A-fib, likely her valve will need to be intervened on at some point Acute systolic and diastolic CHF exacerbation -Fluid restrictions 1500 cc -Bumex 1 mg every 12 hours cardiac echo Normal left ventricular size and systolic function, EF 74 %. No ?regional wall motion abnormalities. ?Severe low gradient aortic valve stenosis, mean gradient 28.7 ?mmHg, NANO 0.56 cm squared.? Peak velocity of 3.6 m/s with a peak ?gradient of 52 and a mean gradient of 29 mm of Hg. ?Moderate biatrial enlargement ?Thickened mitral valve. Moderate mitral annular calcification.? ?Moderate mitral valve regurgitation. ?Vgdwgyih-[id number]-disbtt tricuspid valve regurgitation.? Estimated ?pulmonary artery peak systolic pressure of 57 mmHg-moderate ?pulmonary hypertension. ?There is no pericardial effusion. ?There are no intracardiac masses. ?No similar previous studies are available for comparison -Place Sanchez catheter -Monitor potassium, magnesium, creatinine Severe aortic stenosis, will discuss with patient's pharmacy services representative tomorrow Pneumonia -Received Levaquin in the emergency room -Continue Rocephin and azithromycin -Blood cultures -Sputum cultures COVID-19 pneumonia, switch to Decadron, and add remdesivir Asthma, -Continue albuterol, budesonide Hypertension, continue metoprolol Hyperlipidemia, will consider statin based on lipid, Physical deconditioning, PT OT Protein calorie malnutrition, with muscle wasting, has temporal muscle wasting, peripheral muscle wasting Full code Eliquis for DVT prophylaxis Attestations Medical Necessity Statement*: Patient requires a position for A-fib RVR, pneumonia, severe arctic stenosis CHF exacerbation, pneumonia Diagnoses CHF exacerbation I50.9 Atrial fibrillation with RVR I48.91 Pneumonia J18.9 Physical deconditioning R53.81 Protein calorie malnutrition E46 Goals of care, counseling/discussion Z71.89 Chronic anticoagulation Z79.01 Congestive heart failure (CHF) I50.9 Hypertension I10 Hyperlipidemia E78.5 Asthma J45.909 Aortic stenosis I35.0 Mitral valve regurgitation I34.0 Atrial fibrillation I48.91 Acute respiratory failure with hypoxia J96.01 Acute encephalopathy G93.40 Pneumonia due to COVID-19 virus U07.1; J12.82
[2022-09-10] MEDS: ALPRAZolam 0.5 mg Tablet 0.25 MG PO (20:23)
[2022-09-11] VITALS (13 sets, daily range): BP systolic 111–123; BP diastolic 62–76; PULSE 75–96; RESP 16–23; TEMP 36.3–36.9; O2SAT 93–100
[2022-09-11] MEDS: bumetanide 0.25 mg/mL SDV 4 mL 1 MG IVP (06:02)
[2022-09-11] MEDS: remdesivir 100 MG in sodium chloride 0.9% (100 ml) 80 ML IV (06:02)
[2022-09-11 06:08] LABS: Basophils % 0.1 %; Hemoglobin 11.7 g/dL (11.5-15.3); Lymphocytes % 10.1 %; Mean Corpuscular HGB Conc 30.8 g/dL (30.0-36.0); Mean Corpuscular Hemoglobin 25.1 pg (28.0-34.0); Mean Corpuscular Volume 81.4 fl (81-99); Mean Platelet Volume 11.4 fL (7.4-10.4); Monocytes # 0.7 10^3/uL (0.2-0.9); Monocytes % 7.7 %; Neutrophils # 7.65 10^3/uL (1.8-7.7); Neutrophils % 81.8 %; Nucleated Red Blood Cells % 0 %; Platelet Count 249 10^3/cmm (130-400); Red Blood Count 4.67 10^6/uL (4.1-5.3); Red Cell Distribution Width 17.5 % (12.1-15.1); White Blood Count 9.4 10^3/uL (4.0-10.0)
[2022-09-11 06:44] LABS: Alanine Aminotransferase 9 U/L (0-33); Albumin Level 3.1 g/dL (3.5-5.2); Alkaline Phosphatase 100 U/L (35-105); Anion Gap 15.5 (5-19); Aspartate Amino Transferase 14 U/L (0-32); Blood Urea Nitrogen 21 mg/dL (8-23); C Reactive Protein 37.6 mg/L (0.0-4.9); Calcium 9.7 mg/dL (8.5-10.5); Carbon Dioxide 30 mmol/L (22-29); Chloride 97 mmol/L (98-107); Globulin 2.3 g/dL (1.3-4.6); Glucose 141 mg/dL (65-115); Magnesium 1.7 mg/dL (1.7-2.3); Osmolality Calculated 293 mOsm/kg (285-295); Potassium 3.5 mmol/L (3.5-5.1); Sodium 139 mmol/L (136-145); Total Bilirubin 0.4 mg/dL (0.15-1.2); Total Protein 5.4 g/dL (6.6-8.7)
[2022-09-11 06:45] LABS: NT Pro B Type Natriuretic Pept 10252 pg/mL (0-450)
[2022-09-11] MEDS: metoprolol tartrate 50 mg Tablet 75 MG PO ×2 (08:50→18:11)
[2022-09-11] MEDS: pantoprazole DR 40 mg Tablet PO (08:50)
[2022-09-11] MEDS: apixaban 5 mg Tablet PO ×2 (08:50→18:11)
[2022-09-11] MEDS: dilTIAZem ER (24HR) 120 mg Capsule PO (08:50)
[2022-09-11] MEDS: potassium chloride ER 20 mEq Tablet PO (08:50)
[2022-09-11] MEDS: azithromycin 500 MG in sodium chloride 0.9% 250 ML 250 MG IV (08:51)
[2022-09-11] MEDS: dexamethasone 10 mg/mL INJ 6 MG IVP (08:51)
[2022-09-11] MEDS: fluticasone nasal spray 16gm Btl 2 SPRAY INTRANASAL (08:51)
[2022-09-11] MEDS: cefTRIAXone 1,000 MG in sodium chloride 0.9% (plus) 50 ML 100 MG IV (08:51)
[2022-09-11] MEDS: albuterol 2.5 mg/3 mL Neb INHALATION ×2 (10:32→20:59)
--- NOTE | 2022-09-11 10:46 | PC.SOCIAL ---
Pg 2 IMM Explained to pt Pg 2 IMM. No questions voiced. Provided pt a copy. Initialed, dated, & timed a copy & placed in chart.
--- NOTE | 2022-09-11 15:45 | P.PN_ITS ---
Subjective Subjective: Patient was seen this morning, she is feeling better, she continues to feel weak, she is actually on room air to 1 L, her edema has improved her shortness of breath has improved, I spoke to patient's daughter, she has COVID and is sick at home, I was able to get patient's freelance web designer phone number so I can discuss with his echo cardiogram findings Spoke to Dr. Abdirahman Mujica, [facility] about patient's echocardiogram results, she has severe stenosis, and hospitalization for A-fib with RVR CHF, he says that he will try to see her sooner for consideration of aortic valve replacement Vitals/I&O/Wt Last Vital Signs Temp 98.0 F 09/11/22 12:00 Pulse 95 09/11/22 12:00 Resp 23 H 09/11/22 12:00 BP 115/67 09/11/22 12:00 Pulse Ox 93 09/11/22 12:00 O2 Del Method 09/11/22 12:00 O2 Flow Rate 4 09/11/22 10:32 09/11/22 09/11/22 09/11/22 06:59 14:59 22:59 Intake Total 600 / 600 Output Total 1550 / 3700 1999 Balance -1550 / -2664 -1400 / -1400 Physical Exam Const: COMMON NORMALS: no acute distress ORIENTATION/CONSCIOUSNESS: Yes awake, Yes oriented to person and Yes oriented to place Resp: COMMON NORMALS: normal respiratory effort, No retractions and No use of accessory muscles AUSCULTATION: crackles Cardio: COMMON NORMALS: regular rate, regular rhythm, S1 normal heart sound present and S2 normal heart sound present RATE: regular rate RHYTHM: regular rhythm HEART SOUNDS: S1 normal heart sound present and S2 normal heart sound present GI: COMMON NORMALS: Normal to inspection, nondistended, normoactive bowel sounds present and non-tender Extremity: COMMON NORMALS: no pedal edema Neuro: SENSORIUM/ORIENTATION: Yes oriented to person and Yes oriented to place Psych: COMMON NORMALS: mental status grossly normal Urinary Catheter Management: Sanchez: Cath Placed During This Visit: yes Reason for Continuing Indwelling Catheter: Accurate Measurement of Urinary Output in Critically Ill Patients Urinary Catheter Date of Insertion: 09/08/22 Urinary Catheter Time of Insertion: 19:30 Data 09/11/22 05:39 02/20/23 05:39 Micro: Microbiology 09/08/22 21:45 Gram Stain - Final Sputum - Expectorated Sputum Sputum Culture - Final A&P Assessment and plan (1) CHF exacerbation: (2) Atrial fibrillation with RVR: (3) Pneumonia: (4) Physical deconditioning: (5) Protein calorie malnutrition: (6) Goals of care, counseling/discussion: (7) Chronic anticoagulation: (8) Congestive heart failure (CHF): (9) Hypertension: (10) Hyperlipidemia: (11) Asthma: (12) Aortic stenosis: (13) Mitral valve regurgitation: (14) Atrial fibrillation: (15) Acute respiratory failure with hypoxia: (16) Acute encephalopathy: (17) Pneumonia due to COVID-19 virus: Plan Acute encephalopathy -Resolved -Likely secondary to underlying dementia -However pneumonia could be playing a role -Neurochecks, aspiration precautions Acute hypoxic respiratory failure -Secondary to pneumonia, A-fib with RVR, fluid overload from acute CHF exacerbation A-fib with RVR -Continue increase metoprolol to 75 twice daily -Continue home Cardizem -Eliquis 5 mg twice daily -Based upon what patient is telling, likely her severe aortic stenosis and her mitral regurg is playing a role due to her recurrent hospitalizations for A-fib, spoke to patient's freelance web designer, he will have her follow-up sooner for consideration of aortic valve replacement Acute systolic and diastolic CHF exacerbation -Fluid restrictions 1500 cc -Become a euvolemic, switch to Bumex 1 mg every 24 hours cardiac echo Normal left ventricular size and systolic function, EF 74 %. No ?regional wall motion abnormalities. ?Severe low gradient aortic valve stenosis, mean gradient 28.7 ?mmHg, NANO 0.56 cm squared.? Peak velocity of 3.6 m/s with a peak ?gradient of 52 and a mean gradient of 29 mm of Hg. ?Moderate biatrial enlargement ?Thickened mitral valve. Moderate mitral annular calcification.? ?Moderate mitral valve regurgitation. ?Kxkdqshz-[id number] tricuspid valve regurgitation.? Estimated ?pulmonary artery peak systolic pressure of 57 mmHg-moderate ?pulmonary hypertension. ?There is no pericardial effusion. ?There are no intracardiac masses. ?No similar previous studies are available for comparison -Place Sanchez catheter -Monitor potassium, magnesium, creatinine Severe aortic stenosis, will discuss with patient's freelance web designer tomorrow Pneumonia -Received Levaquin in the emergency room -De-escalate to Augmentin -Blood cultures -Sputum cultures COVID-19 pneumonia, switch to Decadron, and add remdesivir Asthma, -Continue albuterol, budesonide Hypertension, continue metoprolol Hyperlipidemia, will consider statin based on lipid, Physical deconditioning, PT OT Protein calorie malnutrition, with muscle wasting, has temporal muscle wasting, peripheral muscle wasting Full code Eliquis for DVT prophylaxis Attestations Medical Necessity Statement*: Patient requires hospital care for fluid overload, pneumonia, severe arctic stenosis Diagnoses CHF exacerbation I50.9 Atrial fibrillation with RVR I48.91 Pneumonia J18.9 Physical deconditioning R53.81 Protein calorie malnutrition E46 Goals of care, counseling/discussion Z71.89 Chronic anticoagulation Z79.01 Congestive heart failure (CHF) I50.9 Hypertension I10 Hyperlipidemia E78.5 Asthma J45.909 Aortic stenosis I35.0 Mitral valve regurgitation I34.0 Atrial fibrillation I48.91 Acute respiratory failure with hypoxia J96.01 Acute encephalopathy G93.40 Pneumonia due to COVID-19 virus U07.1; J12.82
[2022-09-11] MEDS: amoxicillin-clav 875-125 mg Tablet 1 TAB PO (18:11)
[2022-09-11] MEDS: budesonide 0.5 mg/2 mL Neb INHALATION (20:59)
[2022-09-11] MEDS: ALPRAZolam 0.5 mg Tablet 0.25 MG PO (21:16)
[2022-09-12] VITALS (12 sets, daily range): BP systolic 121–138; BP diastolic 55–77; PULSE 75–90; RESP 17–26; TEMP 36.7; O2SAT 89–99
[2022-09-12 04:09] LABS: Basophils % 0.1 %; Hematocrit 39.6 % (37.0-47.0); Hemoglobin 12.4 g/dL (11.5-15.3); Lymphocytes % 9.4 %; Mean Corpuscular HGB Conc 31.3 g/dL (30.0-36.0); Mean Corpuscular Hemoglobin 25.4 pg (28.0-34.0); Mean Corpuscular Volume 81.1 fl (81-99); Mean Platelet Volume 11.1 fL (7.4-10.4); Monocytes # 0.7 10^3/uL (0.2-0.9); Monocytes % 6.1 %; Neutrophils # 8.92 10^3/uL (1.8-7.7); Neutrophils % 83.9 %; Nucleated Red Blood Cells % 0 %; Platelet Count 260 10^3/cmm (130-400); Red Blood Count 4.88 10^6/uL (4.1-5.3); Red Cell Distribution Width 17.2 % (12.1-15.1); White Blood Count 10.6 10^3/uL (4.0-10.0)
[2022-09-12 04:35] LABS: Alanine Aminotransferase 14 U/L (0-33); Albumin Level 2.9 g/dL (3.5-5.2); Alkaline Phosphatase 94 U/L (35-105); Anion Gap 13.4 (5-19); Aspartate Amino Transferase 18 U/L (0-32); Blood Urea Nitrogen 29 mg/dL (8-23); C Reactive Protein 22.4 mg/L (0.0-4.9); Calcium 9.7 mg/dL (8.5-10.5); Carbon Dioxide 34 mmol/L (22-29); Chloride 95 mmol/L (98-107); Globulin 2.5 g/dL (1.3-4.6); Glucose 165 mg/dL (65-115); Magnesium 1.7 mg/dL (1.7-2.3); NT Pro B Type Natriuretic Pept 8460 pg/mL (0-450); Osmolality Calculated 298 mOsm/kg (285-295); Potassium 3.4 mmol/L (3.5-5.1); Sodium 139 mmol/L (136-145); Total Bilirubin 0.4 mg/dL (0.15-1.2); Total Protein 5.4 g/dL (6.6-8.7)
[2022-09-12] MEDS: remdesivir 100 MG in sodium chloride 0.9% (100 ml) 80 ML IV (05:51)
[2022-09-12] MEDS: metoprolol tartrate 50 mg Tablet 75 MG PO ×2 (09:14→17:14)
[2022-09-12] MEDS: apixaban 5 mg Tablet PO ×2 (09:14→17:15)
[2022-09-12] MEDS: amoxicillin-clav 875-125 mg Tablet 1 TAB PO ×2 (09:14→17:14)
[2022-09-12] MEDS: bumetanide 1 mg Tablet PO (09:14)
[2022-09-12] MEDS: pantoprazole DR 40 mg Tablet PO (09:14)
[2022-09-12] MEDS: dilTIAZem ER (24HR) 120 mg Capsule PO (09:14)
[2022-09-12] MEDS: potassium chloride ER 20 mEq Tablet PO (09:14)
[2022-09-12] MEDS: dexamethasone 10 mg/mL INJ 6 MG IVP (09:15)
[2022-09-12] MEDS: fluticasone nasal spray 16gm Btl 2 SPRAY INTRANASAL (09:15)
[2022-09-12] MEDS: budesonide 0.5 mg/2 mL Neb INHALATION (09:57)
--- NOTE | 2022-09-12 14:11 | P.PN_ITS ---
Subjective Subjective: Patient was seen this morning, she is feeling a lot better her shortness of breath has improved, still having some wheezing, she tells that she has oxygen at home, Vitals/I&O/Wt Last Vital Signs Temp 98.0 F 09/12/22 07:23 Pulse 89 09/12/22 12:00 Resp 17 09/12/22 09:59 BP 126/55 09/12/22 07:23 Pulse Ox 97 09/12/22 09:59 O2 Del Method 09/12/22 09:59 O2 Flow Rate 3 09/12/22 09:59 09/11/22 09/12/22 09/12/22 22:59 06:59 14:59 Intake Total 460 / 1060 300 / 1360 480 / 480 Output Total 1600 / 3600 1000 / 1000 Balance 460 / -940 -1300 / -2240 -520 / -520 Physical Exam Const: COMMON NORMALS: no acute distress ORIENTATION/CONSCIOUSNESS: Yes awake, Yes oriented to person and Yes oriented to place Resp: COMMON NORMALS: normal respiratory effort, No retractions, No use of accessory muscles and clear to auscultation bilaterally AUSCULTATION: clear to auscultation bilaterally Cardio: COMMON NORMALS: regular rate, regular rhythm, S1 normal heart sound present and S2 normal heart sound present RATE: regular rate RHYTHM: regular rhythm HEART SOUNDS: S1 normal heart sound present and S2 normal heart sound present GI: COMMON NORMALS: Normal to inspection, nondistended, normoactive bowel sounds present and non-tender Extremity: COMMON NORMALS: no pedal edema Neuro: SENSORIUM/ORIENTATION: Yes oriented to person and Yes oriented to place Psych: COMMON NORMALS: mental status grossly normal Urinary Catheter Management: Sanchez: Cath Placed During This Visit: yes Reason for Continuing Indwelling Catheter: Acute Urinary Retention or Obstruction Urinary Catheter Date of Insertion: 09/08/22 Urinary Catheter Time of Insertion: 19:30 Data 09/12/22 03:14 09/12/22 03:14 Micro: Microbiology 09/08/22 21:45 Gram Stain - Final Sputum - Expectorated Sputum Sputum Culture - Final A&P Assessment and plan (1) CHF exacerbation: (2) Atrial fibrillation with RVR: (3) Pneumonia: (4) Physical deconditioning: (5) Protein calorie malnutrition: (6) Goals of care, counseling/discussion: (7) Chronic anticoagulation: (8) Congestive heart failure (CHF): (9) Hypertension: (10) Hyperlipidemia: (11) Asthma: (12) Aortic stenosis: (13) Mitral valve regurgitation: (14) Atrial fibrillation: (15) Acute respiratory failure with hypoxia: (16) Acute encephalopathy: (17) Pneumonia due to COVID-19 virus: Plan Acute encephalopathy -Resolved -Likely secondary to underlying dementia -However pneumonia could be playing a role -Neurochecks, aspiration precautions Acute hypoxic respiratory failure -Secondary to pneumonia, A-fib with RVR, fluid overload from acute CHF exacerbation A-fib with RVR -Continue increase metoprolol to 75 twice daily -Continue home Cardizem -Eliquis 5 mg twice daily -Based upon what patient is telling, likely her severe aortic stenosis and her mitral regurg is playing a role due to her recurrent hospitalizations for A-fib, spoke to patient's decorator store, he will have her follow-up sooner for consideration of aortic valve replacement Acute systolic and diastolic CHF exacerbation -Fluid restrictions 1500 cc -Currently euvolemic, switch to Bumex 1 mg every 24 hours cardiac echo Normal left ventricular size and systolic function, EF 74 %. No ?regional wall motion abnormalities. ?Severe low gradient aortic valve stenosis, mean gradient 28.7 ?mmHg, NANO 0.56 cm squared.? Peak velocity of 3.6 m/s with a peak ?gradient of 52 and a mean gradient of 29 mm of Hg. ?Moderate biatrial enlargement ?Thickened mitral valve. Moderate mitral annular calcification.? ?Moderate mitral valve regurgitation. ?Taxvlylb-ga-ydriju tricuspid valve regurgitation.? Estimated ?pulmonary artery peak systolic pressure of 57 mmHg-moderate ?pulmonary hypertension. ?There is no pericardial effusion. ?There are no intracardiac masses. ?No similar previous studies are available for comparison -Place Sanchez catheter -Monitor potassium, magnesium, creatinine Severe aortic stenosis, will discuss with patient's decorator store tomorrow Pneumonia -Received Levaquin in the emergency room -Currently on Augmentin -Blood cultures -Sputum cultures COVID-19 pneumonia, continue Decadron for 1 more day, 1 more day of remdesivir Asthma, -Continue albuterol, budesonide Hypertension, continue metoprolol Hyperlipidemia, will consider statin based on lipid, Physical deconditioning, PT OT Protein calorie malnutrition, with muscle wasting, has temporal muscle wasting, peripheral muscle wasting Full code Eliquis for DVT prophylaxis Plan for today finish off COVID-19 treatment 1 more day of Decadron 1 more day of remdesivir, continue PT OT monitor heart rate, continue diuresis, plan on discharging tomorrow Attestations Medical Necessity Statement*: Patient requires hospital mission due to COVID- 19, receiving 1 more day of Decadron, remdesivir diuresis discharging tomorrow Diagnoses CHF exacerbation I50.9 Atrial fibrillation with RVR I48.91 Pneumonia J18.9 Physical deconditioning R53.81 Protein calorie malnutrition E46 Goals of care, counseling/discussion Z71.89 Chronic anticoagulation Z79.01 Congestive heart failure (CHF) I50.9 Hypertension I10 Hyperlipidemia E78.5 Asthma J45.909 Aortic stenosis I35.0 Mitral valve regurgitation I34.0 Atrial fibrillation I48.91 Acute respiratory failure with hypoxia J96.01 Acute encephalopathy G93.40 Pneumonia due to COVID-19 virus U07.1; J12.82
[2022-09-13] VITALS: BP 166/90; PULSE 83; RESP 21; O2SAT 97
[2022-09-13 04:13] LABS: Basophils % 0.1 %; Hematocrit 43.7 % (37.0-47.0); Hemoglobin 13.4 g/dL (11.5-15.3); Lymphocytes # 0.9 10^3/uL (0.8-4.8); Lymphocytes % 7.4 %; Mean Corpuscular HGB Conc 30.7 g/dL (30.0-36.0); Mean Corpuscular Volume 81.5 fl (81-99); Mean Platelet Volume 11.2 fL (7.4-10.4); Monocytes # 0.9 10^3/uL (0.2-0.9); Monocytes % 7.3 %; Neutrophils # 10.55 10^3/uL (1.8-7.7); Neutrophils % 84.4 %; Nucleated Red Blood Cells % 0 %; Platelet Count 316 10^3/cmm (130-400); Red Blood Count 5.36 10^6/uL (4.1-5.3); Red Cell Distribution Width 17.2 % (12.1-15.1); White Blood Count 12.5 10^3/uL (4.0-10.0)
[2022-09-13 04:47] LABS: Anion Gap 12.3 (5-19); Blood Urea Nitrogen 32 mg/dL (8-23); Carbon Dioxide 35 mmol/L (22-29); Chloride 94 mmol/L (98-107); Glucose 181 mg/dL (65-115); NT Pro B Type Natriuretic Pept 6268 pg/mL (0-450); Osmolality Calculated 297 mOsm/kg (285-295); Potassium 3.3 mmol/L (3.5-5.1); Sodium 138 mmol/L (136-145)
[2022-09-13] MEDS: remdesivir 100 MG in sodium chloride 0.9% (100 ml) 80 ML IV (05:49)
[2022-09-13 06:00] VITALS: PULSE 83
[2022-09-13 07:26] VITALS: BP 120/73; PULSE 76; RESP 17; TEMP 36.7; O2SAT 96
[2022-09-13 08:00] VITALS: PULSE 82; RESP 18; O2SAT 93
[2022-09-13] MEDS: amoxicillin-clav 875-125 mg Tablet 1 TAB PO (09:05)
[2022-09-13] MEDS: pantoprazole DR 40 mg Tablet PO (09:05)
[2022-09-13] MEDS: potassium chloride ER 20 mEq Tablet PO (09:05)
[2022-09-13] MEDS: metoprolol tartrate 50 mg Tablet 75 MG PO (09:05)
[2022-09-13] MEDS: bumetanide 1 mg Tablet PO (09:05)
[2022-09-13] MEDS: apixaban 5 mg Tablet PO (09:05)
[2022-09-13] MEDS: dilTIAZem ER (24HR) 120 mg Capsule PO (09:06)
[2022-09-13] MEDS: budesonide 0.5 mg/2 mL Neb INHALATION (09:27)
--- NOTE | 2022-09-13 10:45 | PM.DCS ---
Discharge Providers Date of Admission: 09/08/22 18:35 Date of Discharge: September 13, 2022 Attending Provider at Admission: Fabricio Swain MD Attending Provider at Discharge: Fabricio Swain MD Primary Care Provider: Josh Metz Diagnoses at Discharge Discharge Diagnosis (1) CHF exacerbation: Status: Acute (2) Atrial fibrillation with RVR: Status: Acute (3) Pneumonia: Status: Acute (4) Physical deconditioning: Status: Acute (5) Protein calorie malnutrition: Status: Acute (6) Goals of care, counseling/discussion: Status: Acute (7) Chronic anticoagulation: Status: Acute (8) Congestive heart failure (CHF): Status: Acute (9) Hypertension: Status: Acute (10) Hyperlipidemia: Status: Acute (11) Asthma: Status: Acute (12) Aortic stenosis: Status: Acute (13) Mitral valve regurgitation: Status: Acute (14) Atrial fibrillation: Status: Acute (15) Acute respiratory failure with hypoxia: Status: Acute (16) Acute encephalopathy: Status: Acute (17) Pneumonia due to COVID-19 virus: Status: Acute Reason for Visit Reason for Visit: RESPIRATORY DISTRESS Hospital Course Hospital Course Avis Villela is a 86 year old female with a past medical history of aortic valve stenosis, mitral valve regurg, atrial fibrillation on Eliquis, hypertension, hyperlipidemia, history of asthma, sees a optical goods drilling machine operator since [place], this is her third hospitalization in the last 2 months, she was at [facility] the last 2 tabs most recent was August 16, currently lives at home, with her daughter, ambulates with a walker, requires assistance with activities of daily living, who presents to [facility] due to increased shortness of breath with exertion progressing to rest, with developing bilateral lower extremity edema, productive cough.? Patient is alert to person, to place, not to time, she knows who the president is, she frequently looks to her daughter for answers but daughter denies a history of dementia.? She denies any falls, no fevers, chills, no chest pain, no history of CAD no history of stenting, no history of angiogram, she recently just saw her optical goods drilling machine operator and he told her that she had what sounds like severe aortic stenosis but not severe enough to do surgery Patient was admitted to [facility] for acute hypoxic respiratory failure, secondary to RVR, fluid overload from acute exacerbation, pneumonia, COVID-19 pneumonia For A-fib with RVR, overall clinically improved, switch to metoprolol to 75 twice daily with her home Cardizem, continue home Eliquis For acute hypoxic respiratory failure secondary to CHF exacerbation, diuresis medication, diuresed over 6 L, clinically improved, discharged with Bumex therapy 1 mg once daily, with potassium placement therapy For her pneumonia, received broad-spectrum antibiotic therapy, overall pain is improved, discharged on Augmentin For her severe aortic stenosis, spoke to her optical goods drilling machine operator at [facility], he will follow-up with her sooner, for consideration of aortic valve replacement For her COVID-19 pneumonia, received remdesivir for 5 days, Decadron, overall clinically improved, discharged with instructions to self isolate, socially distance, facemask, hand wash, is already on Eliquis for hypercoagulability prophylaxis, and for atrial fibrillation last. Patient was advised to monitor for chest pain, signs of DVTs or PEs if so the emergency room Discharged to the care of her daughter with the patient's primary caregiver in addition to her Physical Exam Const: COMMON NORMALS: no acute distress and patient oriented x3 Resp: COMMON NORMALS: normal respiratory effort, No retractions, No use of accessory muscles and clear to auscultation bilaterally AUSCULTATION: clear to auscultation bilaterally Cardio: COMMON NORMALS: regular rate, regular rhythm, S1 normal heart sound present and S2 normal heart sound present RATE: regular rate RHYTHM: regular rhythm HEART SOUNDS: S1 normal heart sound present and S2 normal heart sound present GI: COMMON NORMALS: Normal to inspection, nondistended, normoactive bowel sounds present and non-tender Extremity: COMMON NORMALS: no pedal edema Neuro: COMMON NORMALS: patient oriented x3 Psych: COMMON NORMALS: mental status grossly normal Urinary Catheter Management: Sanchez: Cath Placed During This Visit: yes Reason for Continuing Indwelling Catheter: Acute Urinary Retention or Obstruction Urinary Catheter Date of Insertion: 09/08/22 Urinary Catheter Time of Insertion: 19:30 Discharge Data Studies Completed and Pending Completed Studies During Hospitalization Category Date Time Status XR chest 1V portable [id number] Stat Exams 09/08/22 15:50 [place] [id number] Routine Ultrasound 09/09/22 08:08 Completed CV. echo complete* [id number] Routine Ultrasound 09/09/22 06:00 Completed Pending at discharge Category Date Time Status Basic Metabolic Panel AM LABS Lab 09/14/22 04:00 Ordered Basic Metabolic Panel AM LABS Lab 09/15/22 04:00 Ordered Blood Culture Stat Lab 09/08/22 17:07 Results Complete Blood Count w/Auto AM LABS Lab 09/14/22 04:00 Ordered Complete Blood Count w/Auto AM LABS Lab 09/15/22 04:00 Ordered NT Pro B Type Natriuretic Pept QAM Lab 09/14/22 06:00 Ordered NT Pro B Type Natriuretic Pept QAM Lab 09/15/22 06:00 Ordered Radiology Impressions Chest X-Ray 09/08/22 15:50 IMPRESSION: 1. Parenchymal densities right lower lobe consistent with pneumonia 2. Otherwise negative chest examination Venous Duplex 09/09/22 08:08 IMPRESSION: No evidence of deep vein thrombosis. Laboratory Results WBC 12.5 10^3/uL (4.0-10.0) H 09/13/22 03:38 RBC 5.36 10^6/uL (4.1-5.3) H 09/13/22 03:38 Hgb 13.4 g/dL (11.5-15.3) 09/13/22 03:38 Hct 43.7 % (37.0-47.0) 09/13/22 03:38 MCV 81.5 fl (81-99) 09/13/22 03:38 MCH 25.0 pg (28.0-34.0) L 09/13/22 03:38 MCHC 30.7 g/dL (30.0-36.0) 09/13/22 03:38 RDW 17.2 % (12.1-15.1) H 09/13/22 03:38 Plt Count 316 10^3/cmm (130-400) 09/13/22 03:38 MPV 11.2 fL (7.4-10.4) H 09/13/22 03:38 Neut % (Auto) 84.4 % 09/13/22 03:38 Lymph % (Auto) 7.4 % 09/13/22 03:38 [place] % (Auto) 7.3 % 09/13/22 03:38 Eos % (Auto) 0.0 % 09/13/22 03:38 Baso % (Auto) 0.1 % 09/13/22 03:38 Neut # (Auto) 10.55 10^3/uL (1.8-7.7) H 09/13/22 03:38 Lymph # (Auto) 0.9 10^3/uL (0.8-4.8) 09/13/22 03:38 [place] # (Auto) 0.9 10^3/uL (0.2-0.9) 09/13/22 03:38 Eos # (Auto) 0.0 10^3/uL (0.0-0.8) 09/13/22 03:38 Baso # (Auto) 0.0 10^3/uL (0.0-0.1) 09/13/22 03:38 Nucleated RBC % (auto) 0 % 09/13/22 03:38 Nucleated RBCs # 0.0 /100WBC 09/13/22 03:38 Sodium 138 mmol/L (136-145) 09/13/22 03:38 Potassium 3.3 mmol/L (3.5-5.1) L 09/13/22 03:38 Chloride 94 mmol/L (98-107) L 09/13/22 03:38 Carbon Dioxide 35 mmol/L (22-29) H 09/13/22 03:38 Anion Gap 12.3 (5-19) 09/13/22 03:38 BUN 32 mg/dL (8-23) H 09/13/22 03:38 Creatinine 0.8 mg/dL (0.5-0.9) 09/13/22 03:38 GFR Calculation Not Reportable 09/13/22 03:38 Glucose 181 mg/dL (65-115) H 09/13/22 03:38 Calculated Osmolality 297 mOsm/kg (285-295) H 09/13/22 03:38 Lactic Acid 2.1 mmol/L (0.5-2.2) 09/08/22 16:17 Lactic Acid (Sepsis) 2.8 mmol/L (0.5-2.2) H 09/08/22 19:20 Calcium 10.0 mg/dL (8.5-10.5) 09/13/22 03:38 Phosphorus 4.0 mg/dL (2.5-4.5) 09/11/22 05:39 Magnesium 1.7 mg/dL (1.7-2.3) 09/12/22 03:14 Total Bilirubin 0.4 mg/dL (0.15-1.2) 09/12/22 03:14 AST 18 U/L (0-32) 09/12/22 03:14 ALT 14 U/L (0-33) 09/12/22 03:14 Alkaline Phosphatase 94 U/L (35-105) 09/12/22 03:14 Troponin T Baseline 13 ng/L (0-10) H 09/08/22 16:13 Troponin T 120 Minute 13.70 ng/L (0-10) H 09/08/22 18:32 Delta Troponin T 0.70 ABS# (0-10) 09/08/22 18:32 Troponin T Hi Sens 6Hr 12.90 ng/L (0-10) H 09/08/22 21:30 Troponin T Hi Sens 6Hr Delta -0.10 ng/L (0-12) L 09/08/22 21:30 C-Reactive Protein 22.4 mg/L (0.0-4.9) H 09/12/22 03:14 NT-Pro-B Natriuret Pep 6268 pg/mL (0-450) H 09/13/22 03:38 Total Protein 5.4 g/dL (6.6-8.7) L 09/12/22 03:14 Albumin 2.9 g/dL (3.5-5.2) L 09/12/22 03:14 Globulin 2.5 g/dL (1.3-4.6) 09/12/22 03:14 Triglycerides 52 mg/dL (0-150) 09/08/22 18:32 Cholesterol 132 mg/dL (0-200) 09/08/22 18:32 LDL Cholesterol, Calc 76 mg/dL (50-129) 09/08/22 18:32 HDL Cholesterol 46 mg/dL (60-100) L 09/08/22 18:32 LDL/HDL Ratio 1.65 RATIO (0.00-3.22) 09/08/22 18:32 Cholesterol/HDL Ratio 2.87 mg/dL (0.0-4.40) 09/08/22 18:32 Procalcitonin 0.07 ng/mL (0-0.5) 09/08/22 16:17 TSH 1.99 uIU/mL (0.27-4.20) 09/08/22 18:32 Urine Color Yellow (Yellow) 09/08/22 21:30 Urine Appearance Clear (CLEAR) 09/08/22 21:30 Urine pH 5 (5-7) 09/08/22 21:30 Ur Specific [place] 1.005 (1.005-1.030) 09/08/22 21:30 Urine Protein Neg (Negative) 09/08/22 21:30 Urine Glucose (UA) Norm (Normal) 09/08/22 21:30 Urine Ketones Negative (Negative) 09/08/22 21:30 Urine Blood Neg (Negative) 09/08/22 21:30 Urine Nitrate Negative (Negative) 09/08/22 21:30 Urine Bilirubin Neg (Negative) 09/08/22 21:30 Urine Urobilinogen Neg mg/dL (Negative) 09/08/22 21:30 Ur Leukocyte Esterase Negative (Negative) 09/08/22 21:30 Coronavirus 229E (PCR) Detected (NOT DETECT) A 09/08/22 17:38 SARS-CoV-2 (PCR) Detected (NOT DETECT) A 09/08/22 17:38 Vitals Last Vital Signs Temp 98.0 F 09/13/22 07:26 Pulse 82 09/13/22 08:00 Resp 18 09/13/22 08:00 BP 120/73 09/13/22 07:26 Pulse Ox 93 09/13/22 08:00 O2 Del Method 09/13/22 08:00 O2 Flow Rate 2 09/13/22 08:00 Discharge Plan Discharge Patient Disposition: Home Condition: Stable Prescriptions: New bumetanide 1 mg Tablet 1 mg PO DAILY 30 Days Qty: 30 0RF amoxicillin-pot clavulanate 875-125 mg Tablet 1 tab PO BID 3 Days Qty: 6 0RF Continued albuterol sulfate 2.5 mg /3 mL (0.083 %) solution for nebulization 2.5 mg inhalation Q4H PRN (Reason: Shortness Of Breath) pantoprazole 40 mg tablet,delayed release (DR/EC) 40 mg PO DAILY fluticasone propionate 50 mcg/actuation spray,suspension 2 spray INTRANASAL DAILY Eliquis 5 mg tablet 5 mg PO BID fluticasone propion-salmeterol 250-50 mcg/dose blister with device 1 inh INHALATION BID Qty: 60 0RF potassium chloride 20 mEq tablet,ER particles/crystals 20 meq PO BID 30 Days Qty: 60 0RF diltiazem HCl 120 mg capsule,extended release 24hr 120 mg PO DAILY 30 Days Qty: 30 0RF Changed metoprolol tartrate 50 mg tablet 75 mg PO BID 30 Days Qty: 90 0RF albuterol sulfate 90 mcg/actuation HFA aerosol inhaler 1 puff INHALATION Q4H PRN (Reason: Shortness Of Breath) Qty: 8.5 0RF Discontinued furosemide 40 mg tablet 40 mg PO DAILY bumetanide 0.5 mg tablet 0.5 mg PO DAILY hydrochlorothiazide 12.5 mg tablet 6.25 mg PO DAILY Discharge Orders: Discharge Order (Routine); Ordered 09/13/22 Ordered By: Fabricio Swain Referrals: JEFFREY Sebastian[facility] [Other] Discharge Diet: Cardiac Discharge Activity: Resume usual activity Patient Instructions: Bumetanide (By mouth) (Bumex), Amoxicillin/Clavulanate Potassium (By mouth) (Augmentin, Augmentin..., Opioid Safety Activity Restrictions/Additional Instructions: - Please follow-up with your optical goods drilling machine operator at [facility] within the next few weeks -Take Bumex and potassium as prescribed -Take antibiotics as prescribed -If you have any worsening shortness of breath go to the emergency room -Please continue to self isolate, socially distance, facemask, hand wash -You are at increased risk of hypercoagulability events with COVID-19, you are already on Eliquis, monitor for signs for chest pain, shortness of breath, signs of blood clots including calf pain calf swelling, or bloody cough, if so go to the emergency room - Discharge Attestations Time Spent in Discharge Care*: greater than 30 min Quality Metrics Clinical Quality Measures [ No reported AMI, CVA or VTE this stay] Coding Level of Care Code 41651 Total time (in minutes) for Discharge: 40 Diagnoses CHF exacerbation I50.9 Atrial fibrillation with RVR I48.91 Pneumonia J18.9 Physical deconditioning R53.81 Protein calorie malnutrition E46 Goals of care, counseling/discussion Z71.89 Chronic anticoagulation Z79.01 Congestive heart failure (CHF) I50.9 Hypertension I10 Hyperlipidemia E78.5 Asthma J45.909 Aortic stenosis I35.0 Mitral valve regurgitation I34.0 Atrial fibrillation I48.91 Acute respiratory failure with hypoxia J96.01 Acute encephalopathy G93.40 Pneumonia due to COVID-19 virus U07.1; J12.82
--- NOTE | 2022-09-13 10:59 | PC.SOCIAL ---
IMM Updated Updated pt's daughter on IMM. No questions voiced. Provided pt a copy. Initialed, dated, & timed copy in chart.
--- NOTE | 2022-09-13 11:59 | PC.NURSE ---
hand-off report provided to [facility] talked to [facility] well staff jackson, faxed discharge instructions and summary to their agency.
[2022-09-13 12:00] VITALS: BP 121/70; RESP 18; TEMP 36.6; O2SAT 94
--- NOTE | 2022-09-13 15:12 | PC.NURSE ---
discharge to home w/ [facility] talked to eric arthur on phone and discuss to her the discharge order from dr and discharge new meds, dose changes and stopped meds. [phone]. talked to jackson casas. discharge papers mailed to pt address. portable tank provided since eric beard come and pick her up.
== END 2022-09-13 15:16 | disposition home health service (06) | DRG 177 ==
LOC: ER 17:36 → CSU 18:36
PROVIDERS: Admitting Provider Family Medicine; Emergency Provider Family Medicine; PCP Family Medicine; Visit Provider Family Medicine
DX: U07.1 COVID-19 (principal); I50.41 Acute combined systolic (congestive) and diastolic (congestive) heart failure; J12.82 Pneumonia due to coronavirus disease 2019; J96.01 Acute respiratory failure with hypoxia; E46 Unspecified protein-calorie malnutrition; G93.49 Other encephalopathy; I08.3 Combined rheumatic disorders of mitral, aortic and tricuspid valves; I48.91 Unspecified atrial fibrillation; I11.0 Hypertensive heart disease with heart failure; E78.5 Hyperlipidemia, unspecified; Z79.51 Long term (current) use of inhaled steroids; Z79.01 Long term (current) use of anticoagulants; J45.909 Unspecified asthma, uncomplicated; F03.90 Unspecified dementia, unspecified severity, without behavioral disturbance, psychotic disturbance, mood disturbance, and anxiety; Z68.29 Body mass index [BMI] 29.0-29.9, adult
CPT/HCPCS: 36415; 51702; 71045; 80048; 80053; 80061; 81003; 83605; 83735; 83880; 84100; 84145; 84443; 84484; 85025; 86140; 87040; 87070; 87205; 87635; 93005; 93306; 93970; 94640; 96365; 96366; 96367; 96375; 97110; 97116; 97161; 97165; 97530; 97535; 99285; J0248; J0456; J0696; J1100; J1940; J1956; J2405; J3490; J7050; J7613; J7626